=== PATIENT | male | born 1990 | race Caucasian/White ===

== ENCOUNTER 2017-07-06 | Emergency (ER) | payer OTHER ==
[~2017-07-06] VITALS: Ht 165.1 cm; Wt 93.4 kg
[~2017-07-06] MED LIST: MULT-506 PO
[2017-07-06 00:06] VITALS: TEMP 36.8; Ht 165.1 cm; Wt 93.4 kg
[2017-07-06] MEDS ORDERED: IBUPROFEN 600 MG TAB PO STA (00:36)
[2017-07-06] MEDS ORDERED: ACETAMINOPHEN 500 MG TAB PO STA (00:36)
[2017-07-06 00:45] VITALS: BP 132/68; PULSE 98; O2SAT 96
--- NOTE | 2017-07-06 02:02 | EMERGENCY ROOM VISIT NOTE ---
ED Visit Note First contact with patient: 00:09 CHIEF COMPLAINT: Elbow pain HISTORY OF PRESENT ILLNESS: This 27-year-old white male patient presents to the emergency department complaining of pain in the right elbow after striking it on a metal cart at work. The patient rates their pain as dull and 4/10. The patient has taken nothing for relief of the pain. The patient has not had previous fractures to this elbow. The patient does not have any numbness or tingling. The patient denies any other injuries. REVIEW OF SYSTEMS: A 6 system review of systems was completed with positives and pertinent negatives listed in the HPI. ALLERGIES: No known allergies MEDICATIONS: No chronic medication PMH: Otherwise healthy SOCIAL HISTORY: Lives locally, employed PHYSICAL EXAM: Vital Signs: Reviewed Nurse's notes, vital signs stable. GENERAL : White male, in no acute distress, well-developed, well-nourished. SKIN: The skin was without rashes, erythema, edema, warmth, or bruising. Capillary reflex less than 3 seconds. MUSCULOSKELETAL: There is tenderness over the olecranon of the right elbow. No significant laceration. There is no tenderness of the shoulder, wrist, or hand. The patient is able to give a thumbs up, make an OK sign, and a #3 with their fingers. Radial pulse 2+. NEURO: Patient was alert and oriented to person place and time. Normal sensation to light and sharp touch. EMERGENCY DEPARTMENT COURSE: Physical exam and history were performed. Nursing notes and EMR were reviewed. The patient appears to have a contusion injury to his right elbow. X-ray was obtained and reviewed myself showing no acute fracture or dislocation with radiology report pending. The patient will be treated conservatively and was given adult Tylenol here in the department. We will contact him if his radiology reading differs. He is to follow with Workmen's Compensation for ongoing care and was otherwise invited back to the ER. Problem List Medical Problems: (1) No active medical problems Status: Chronic Current/Historical Medications No Active Prescriptions or Reported Meds Allergies Coded Allergies: No Known Allergies (Unverified , 07/06/17) Vital Signs Date Time Temp Pulse Resp B/P (MAP) Pulse Ox O2 Delivery O2 Flow Rate FiO2 07/06/17 00:45 98 17 132/68 96 07/06/17 00:06 36.8 101 17 129/79 96 Room Air Departure Information Impression Primary Impression: Injury of right elbow Dispostion Home / Self-Care Condition GOOD Prescriptions No Active Prescriptions or Reported Meds Forms HOME CARE DOCUMENTATION FORM, IMPORTANT VISIT INFORMATION Patient Instructions My [facility] Additional Instructions You were seen and evaluated today on an emergency basis only. This is not a substitute for, or an effort to provide, complete comprehensive medical care. It is not possible to recognize and treat all injuries or illnesses in a single emergency department visit. For this reason it is recommended that you followup with your Workmen's event specialist this week for recheck of your condition. For baseline pain relief you may alternate ibuprofen and acetaminophen every 4 hours for pain control. Take 600 mg ibuprofen (Advil) and then 4 hours later take 1000 mg acetaminophen (Tylenol). Do not take more than 3000 mg acetaminophen in a single day. You are welcome to return to the emergency department anytime with new, worsening, or concerning symptoms.
--- NOTE | 2017-07-06 06:56 | DIAGNOSTIC IMAGING REPORT ---
R ELBOW MIN 3 VIEWS ROUTINE CLINICAL HISTORY: right elbow injury trauma COMPARISON: None. DISCUSSION: The bones and joint spaces appear intact. There is no evidence of fracture, dislocation or bony disease. There is no evidence for soft tissue swelling. IMPRESSION: Negative study. The above report was generated using voice recognition software. It may contain grammatical, syntax or spelling errors. Electronically signed by: Nic Chua M.D. 07/06/2017 6:54 AM Dictated Date/Time: 07/06/2017 6:52 AM
== END 2017-07-06 00:46 | disposition home or self-care (01) ==
LOC: C.EDB 00:01
DX: S50.01XA Contusion of right elbow, initial encounter (principal); W22.8XXA Striking against or struck by other objects, initial encounter; Y99.0 Civilian activity done for income or pay

== ENCOUNTER 2017-09-14 14:15 | Emergency (ER) | payer BC, OTHER ==
[~2017-09-14] VITALS: Ht 167.6 cm; Wt 91.3 kg
[2017-09-14 14:26] VITALS: TEMP 36.9; Ht 167.6 cm; Wt 91.3 kg
[2017-09-14] MEDS ORDERED: OPTIRAY 320 IV PRN (14:45)
[2017-09-14 15:13] LABS: BASO % 1.2 %; BASO ABS # 0.06 K/uL (0-0.2); EOS % 3.5 %; EOS ABS # 0.17 K/uL (0-0.5); HEMATOCRIT 39.8 % (42-52); HEMOGLOBIN 14.8 g/dL (14.0-18.0); IG# 0.01 K/uL (0.00-0.02); LYMPH % 27.1 %; LYMPH ABS # 1.31 K/uL (1.2-3.4); MEAN CELL VOLUME 82.4 fL (80-100); MEAN CORPUSCULAR HEMOGLOBIN 30.6 pg (25-34); MEAN CORPUSCULAR HGB CONC 37.2 g/dl (32-36); MEAN PLATELET VOLUME 10.2 fL (7.4-10.4); MONO ABS # 0.63 K/uL (0.11-0.59); NEUT ABS # 2.66 K/uL (1.4-6.5); PLATELET COUNT 176 K/uL (130-400); RED CELL DISTRIBUTION WIDTH CV 11.9 % (11.5-14.5); RED CELL DISTRIBUTION WIDTH SD 35.8 fL (36.4-46.3); WHITE BLOOD COUNT 4.84 K/uL (4.8-10.8)
--- NOTE | 2017-09-14 15:26 | EMERGENCY ROOM VISIT NOTE ---
History First contact with patient: 14:29 Chief Complaint: ABDOMINAL PAIN Stated Complaint: SORE STOMACH, DIARRHEA Nursing Triage Summary: patient complains of abdominal pain and diarrhea since tuesday. abdominal pain in in [place] History of Present Illness The patient is a 27 year old male who presents to the Emergency Room with complaints of diarrhea and abdominal discomfort. The patient states that he had 3 alcoholic drinks 4 nights ago and woke up slightly nauseous. He initially thought this was due to drinking, but develops diarrhea later in the day. He did have a temp of 102F which has improved. He states that he has had persistent diarrhea, 10 episodes per day for the past 4 days. He has had some discomfort in his lower abdomen. He denies any blood in his stools. He took Pepto-Bismol without relief. He has not vomited but has been slightly nauseous at times. He has been able to tolerate food and fluids by mouth. He denies any recent uncooked foods, outside water sources, antibiotic use or travel. He does not know if he has been around anyone who has been sick. He rates his overall discomfort as 7/10. He denies any history of medical problems. He was seen by acute care who sent him here for evaluation of possible diverticulitis. Review of Systems A complete 10 point review of systems was reviewed with the patient with pertinent positives and negatives as per history of present illness. All else were negative. Past Medical/Surgical History Medical Problems: (1) No active medical problems Family History Diabetes mellitus Hypertension Social History Smoking Status: Never Smoker Alcohol Use: none Drug Use: none Marital Status: in relationship Housing Status: lives with family Occupation Status: employed Current/Historical Medications No Active Prescriptions or Reported Meds Physical Exam Vital Signs Date Time Temp Pulse Resp B/P (MAP) Pulse Ox O2 Delivery O2 Flow Rate FiO2 09/14/17 17:49 82 16 125/77 96 09/14/17 16:21 76 20 137/80 96 Room Air 09/14/17 14:26 36.9 84 20 124/79 98 Room Air Physical Exam VITALS: Vitals are noted on the nurse's note and reviewed by myself. Vital signs stable. GENERAL: This is a 27-year-old male, in no acute distress, nondiaphoretic, well- developed well-nourished. SKIN: The skin was without rashes. EARS: External auditory canals clear, tympanic membranes pearly gabriel without erythema or effusion bilaterally. EYES: Pupils equal round and reactive to light and accommodation. MOUTH: Mucous membranes moist. Tonsils are not enlarged. Pharynx without erythema or exudate. NECK: Supple without nuchal rigidity. No lymphadenopathy. HEART: Regular rate and rhythm without murmurs gallops or rubs. LUNGS: Clear to auscultation bilaterally without wheezes, rales or rhonchi. ABDOMEN: Positive bowel sounds x 4. Soft, mild tenderness to palpation across the lower abdomen. No guarding or rebound tenderness. NEURO: Patient was alert and oriented to person place and time. Medical Decision & Procedures ER Provider Diagnostic Interpretation: ABDOMEN AND PELVIS CT WITH IV CONTRAST FINDINGS: Mild dependent subsegmental bibasilar atelectasis. There is no pneumatosis or pneumoperitoneum. Imaged inferior cardiac chambers are unremarkable. Spleen is enlarged, 15.5 cm. Liver, gallbladder, pancreas and adrenal glands are within normal limits. Kidneys, ureters and urinary bladder are within normal limits. No ureteral calculi or obstructive uropathy. Aorta is normal in course and caliber without aneurysm. No bulky adenopathy. There are multiple nondilated fluid-filled loops of small bowel. There is trace perisplenic free fluid as well as minimal fluid along the distal left pericolic gutter. Fluid is noted within several loops of colon. No evidence of acute appendicitis. No mesenteric inflammatory changes. The soft tissues are unremarkable. Bones appear intact. Minimal multilevel endplate spurring about the thoracic spine. IMPRESSION: 1. No evidence of bowel obstruction. Multiple loops of fluid-filled small and large bowel may reflect enteritis with diarrheal state. 2. Mild perisplenic and left pericolic gutter free fluid. 3. No evidence of acute appendicitis. 4. Mild splenomegaly. Laboratory Results 09/14/17 15:00 Red Blood Count 4.83, Mean Corpuscular Volume 82.4, Mean Corpuscular Hemoglobin 30.6, Mean Corpuscular Hemoglobin Concent 37.2, Mean Platelet Volume 10.2, Neutrophils (%) (Auto) 55.0, Lymphocytes (%) (Auto) 27.1, Monocytes (%) (Auto) 13.0, Eosinophils (%) (Auto) 3.5, Basophils (%) (Auto) 1.2, Neutrophils # (Auto ) 2.66, Lymphocytes # (Auto) 1.31, Monocytes # (Auto) 0.63, Eosinophils # (Auto ) 0.17, Basophils # (Auto) 0.06 09/14/17 15:00 Test 09/14/17 15:00 09/14/17 17:00 White Blood Count 4.84 K/uL (4.8-10.8) Red Blood Count 4.83 M/uL (4.7-6.1) Hemoglobin 14.8 g/dL (14.0-18.0) Hematocrit 39.8 % (42-52) Mean Corpuscular Volume 82.4 fL (80-100) Mean Corpuscular Hemoglobin 30.6 pg (25-34) Mean Corpuscular Hemoglobin Concent 37.2 g/dl (32-36) Platelet Count 176 K/uL (130-400) Mean Platelet Volume 10.2 fL (7.4-10.4) Neutrophils (%) (Auto) 55.0 % Lymphocytes (%) (Auto) 27.1 % Monocytes (%) (Auto) 13.0 % Eosinophils (%) (Auto) 3.5 % Basophils (%) (Auto) 1.2 % Neutrophils # (Auto) 2.66 K/uL (1.4-6.5) Lymphocytes # (Auto) 1.31 K/uL (1.2-3.4) Monocytes # (Auto) 0.63 K/uL (0.11-0.59) Eosinophils # (Auto) 0.17 K/uL (0-0.5) Basophils # (Auto) 0.06 K/uL (0-0.2) RDW Standard Deviation 35.8 fL (36.4-46.3) RDW Coefficient of Variation 11.9 % (11.5-14.5) Immature Granulocyte % (Auto) 0.2 % Immature Granulocyte # (Auto) 0.01 K/uL (0.00-0.02) Anion Gap 4.0 mmol/L (3-11) Est Creatinine Clear Calc Drug Dose 155.8 ml/min Estimated GFR () 145.9 Estimated GFR (Non- 125.9 BUN/Creatinine Ratio 16.4 (10-20) Calcium Level 8.8 mg/dl (8.5-10.1) Total Bilirubin 1.1 mg/dl (0.2-1) Aspartate Amino Transf (AST/SGOT) 86 U/L (15-37) Alanine Aminotransferase (ALT/SGPT) 177 U/L (12-78) Alkaline Phosphatase 95 U/L (45-117) Total Protein 7.6 gm/dl (6.4-8.2) Albumin 4.1 gm/dl (3.4-5.0) Globulin 3.5 gm/dl (2.5-4.0) Albumin/Globulin Ratio 1.2 (0.9-2) Lipase 57 U/L (73-393) Urine Color YELLOW Urine Appearance CLEAR (CLEAR) Urine pH 7.0 (4.5-7.5) Urine Specific [place] > 1.045 (1.000-1.030) Urine Protein NEG (NEG) Urine Glucose (UA) NEG (NEG) Urine Ketones 2+ (NEG) Urine Occult Blood NEG (NEG) Urine Nitrite NEG (NEG) Urine Bilirubin NEG (NEG) Urine Urobilinogen NEG (NEG) Urine Leukocyte Esterase NEG (NEG) Date/Time Source Procedure Growth Status 09/14/17 17:00 Stool C.difficile Toxin B Gene (PCR) - Final No C. difficile toxin B gene detected Complete Medical Decision Differential diagnosis includes gastroenteritis, colitis, diverticulitis, C. difficile, appendicitis, among others. The patient is a 27-year-old male who presents today complaining of diarrhea and lower abdominal cramping. Patient had a mild tenderness across the lower abdomen on my exam. He was sent here by urgent care due to concern for diverticulitis. Although I did feel this seemed unlikely, CT was performed. This was read by radiology as above. Findings were consistent with enteritis and diarrheal state, but no other acute findings were identified. Labs revealed no leukocytosis, anemia or concerning electrolyte abnormalities. LFTs were slightly elevated and patient was advised to have these rechecked by his PCP. Stool studies were obtained and are pending. Vital signs within normal limits and patient is afebrile here. He was advised to keep a clear liquid diet and follow-up with his PCP for recheck. The patient's case was reviewed with Dr. Carey, ED attending physician, who agreed with my assessment and treatment plan. Based on the patient's presentation and work up, I feel the patient is stable for outpatient treatment. The patient was educated to return to the emergency department for any worsening of their current condition or new/concerning symptoms. He will follow up with his PCP. Medication Reconcilliation Current Medication List: was personally reviewed by me Blood Pressure Screening Patient's blood pressure: Normal blood pressure Impression Primary Impression: Diarrhea Departure Information Dispostion Home / Self-Care Condition GOOD Prescriptions No Active Prescriptions or Reported Meds Referrals No Doctor, Assigned (PCP) Patient Instructions My [facility] Additional Instructions You have been treated in the Emergency Department for your Abdominal Pain and diarrhea. Laboratory results and imaging studies have ruled out any emergent causes for your abdominal pain which would warrant admission or surgery. For pain control, you can use the following [id number] medicines (if >12 yo): - Regular strength (325mg/tab) Tylenol (acetaminophen) 2 tabs every 4-6 hours as needed. Do not exceed 12 tablets in a 24 hour period. Avoid taking more than 4 grams (4000 mg) of Tylenol per day. This includes any other sources of acetaminophen you may take on a regular basis. - Regular strength (200 mg/tab) Advil (ibuprofen) 1-2 tabs every 4-6 hours as needed. Do not exceed a dose of 3200 mg per day. Drink plenty of water and stay well hydrated. As with any trip to the Emergency Department, you should follow-up with your Primary Care Provider from today's visit. Your liver function tests were slightly elevated. You should follow-up with a primary care provider for recheck of these. Make sure to stay well hydrated. Keep a bland diet. Return to the emergency department if your symptoms persist despite treatment plan outlined above or if the following symptoms occur: worsening pain, fever, blood in the stools, or other new/concerning symptoms. Problem Qualifiers Primary Impression: Diarrhea Diarrhea type: unspecified type Qualified Codes: R19.7 - Diarrhea, unspecified
[2017-09-14 15:36] LABS: ALBUMIN 4.1 gm/dl (3.4-5.0); CALCIUM 8.8 mg/dl (8.5-10.1); CREATININE 0.76 mg/dl (0.60-1.40); POTASSIUM 3.4 mmol/L (3.5-5.1)
[2017-09-14 15:38] LABS: TOTAL PROTEIN 7.6 gm/dl (6.4-8.2)
--- NOTE | 2017-09-14 16:19 | DIAGNOSTIC IMAGING REPORT ---
ABDOMEN AND PELVIS CT WITH IV CONTRAST CT DOSE: 989.35 mGycm HISTORY: Acute left lower quadrant abdominal pain and tenderness with diarrhea llq pain, tenderness, diarrhea TECHNIQUE: Multiaxial CT images of the abdomen and pelvis were performed following the use of intravenous contrast. A dose lowering technique was utilized adhering to the principles of ALARA. COMPARISON STUDY: None. FINDINGS: Mild dependent subsegmental bibasilar atelectasis. There is no pneumatosis or pneumoperitoneum. Imaged inferior cardiac chambers are unremarkable. Spleen is enlarged, 15.5 cm. Liver, gallbladder, pancreas and adrenal glands are within normal limits. Kidneys, ureters and urinary bladder are within normal limits. No ureteral calculi or obstructive uropathy. Aorta is normal in course and caliber without aneurysm. No bulky adenopathy. There are multiple nondilated fluid-filled loops of small bowel. There is trace perisplenic free fluid as well as minimal fluid along the distal left pericolic gutter. Fluid is noted within several loops of colon. No evidence of acute appendicitis. No mesenteric inflammatory changes. The soft tissues are unremarkable. Bones appear intact. Minimal multilevel endplate spurring about the thoracic spine. IMPRESSION: 1. No evidence of bowel obstruction. Multiple loops of fluid-filled small and large bowel may reflect enteritis with diarrheal state. 2. Mild perisplenic and left pericolic gutter free fluid. 3. No evidence of acute appendicitis. 4. Mild splenomegaly. Electronically signed by: Louis Lee M.D. 09/14/2017 4:18 PM Dictated Date/Time: 09/14/2017 4:13 PM
[2017-09-14 17:49] VITALS: BP 125/77; PULSE 82; O2SAT 96
== END 2017-09-14 17:50 | disposition home or self-care (01) ==
LOC: C.EDB 14:16 → C.EDA 17:50
DX: R19.7 Diarrhea, unspecified (principal); Z83.3 Family history of diabetes mellitus; Z82.49 Family history of ischemic heart disease and other diseases of the circulatory system